=== PATIENT | female | born 1995 | race Caucasian/White ===

== ENCOUNTER 2019-04-09 22:58 | Emergency (ER) | payer BC ==
[~2019-04-09] VITALS: Ht 162.6 cm; Wt 72.6 kg
[2019-04-09 23:01] VITALS: BP_SYST 128
--- NOTE | 2019-04-09 23:10 | NUR ---
Patient to ER bed 06 for evaluation. Side rails up. Report given to Noemí MATTHEWS.
--- NOTE | 2019-04-09 23:30 | NUR ---
Pt is AAOx4 and ambulatory. Pt was bit by her cousins dog and received 13 stitches to her right cartwright. Stitches are intact. Pt denies any pain to site and states she is her for her wound check. Will continue to monitor pt.
--- NOTE | 2019-04-09 23:42 | NUR ---
ER at bedside examining patient.
[2019-04-09] MEDS ORDERED: BACITRACIN 1 GM OINT TP ONE (23:45)
[2019-04-09 23:53] VITALS: BP_SYST 127
--- NOTE | 2019-04-09 23:53 | NUR ---
Patient given written and verbal discharge instructions and verbalizes understanding. ER MD discussed with patient the results and treatment provided. Patient in stable condition. ID arm band removed. Patient educated on pain management and to follow up with PMD. Pain Scale 0/10. Opportunity for questions provided and answered. Medication side effect fact sheet provided.
== END 2019-04-09 23:53 | disposition home or self-care (01) ==
LOC: SED 22:58
DX: S81.851D Open bite, right lower leg, subsequent encounter (principal); W54.0XXD Bitten by dog, subsequent encounter
CPT/HCPCS: 99283